=== PATIENT | male | born 1995 | race Caucasian/White ===

== ENCOUNTER 2019-09-23 10:15 | Emergency (ER) | payer OTHER ==
--- OUTSIDE RECORDS SUMMARY | 2019-09-23 10:17 | XMS REPORT | Encounter Summary ---
:1995 Author Care Team Providers Name Role Phone Dr. Olayinka Leal Primary Care Provider [phone] Reason for Visit Left ear pain/problem; sleep problems Instructions 1. Sleep disorder otolaryngology referral 2. Hearing loss of left ear audiology referral 3. Tinnitus Bromfed DM 2 mg-30 mg-10 mg/5 mL oral syrup prednisone 20 mg tablet 4. Body mass index 25-29 - overweight learning about healthy weight Discussion Note: None recorded. Plan of Care Patient Instructions RTC prn Reminders Provider Appointments [employer]/EST CPX on or around Olayinka Mishra 10/04/2019 MD [facility] None recorded. Referral Audiology 05/06/2019 Referral Otolaryngology 05/06/2019 Referral Procedures None recorded. Surgeries None recorded. Imaging None recorded. Medications Name Start Date Bromfed DM 2 mg-30 mg-10 mg/5 mL oral syrup Take 10 mL every 6 hours by oral route as needed. prn cough and congestion prednisone 20 mg tablet Take 2 tablets every day by oral route in the morning. Medications Administered None recorded. Vitals Height Weight BMI Blood Pressure 5 ft 11 in 192 lbs 26.8 kg/m2 118/78 mm[Hg] Results Lab Results None recorded. Allergies Code Code System Name Reaction Severity Status Onset NKDA Problems Name Status Onset Date Source Hearing Loss of Left Ear Active 05/06/2019 Procedures Date Name Performed by 07/01/2013 Reconstructive Surgery Information not available Extraction of [place] Tooth Information not available Urology Surgery Procedure Information not available Vaccine List Vaccine Type influenza, injectable, quadrivalent 05/26/2018 04/01/2019 Tdap 07/01/2016 Social History Tobacco Smoking Status Never Smoker Past Encounters 05/06/2019 Sleep Disorder; Hearing Loss of Left Ear; Tinnitus; Body Mass Index 25-29 - Overweight Olayinka Leal MD: [id number], [address], [place] [address], Ph. [phone] History of Present Illness Note: Get est.<div>
</div><div>Ear - Pt did work exam. Told that had 30% hearing loss in Lt. 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 If hears too many conversations at once, will be hard to hear.
Pt will also gets a humming / ringing in michael ears. x 2 yrs. No Tx.</div><div>
Sleep - Pt snores so much that can not stand it. will need to wake Pt up. Pt has had nose Sx. S/S worst since Sx.</div><div>x 2013</div>Review of Systems: ROS as noted in the HPI Review of Systems Comprehensive General Adult ROS Reported By: Patient Constitutional: Constitutional: no fever Eyes: Eyes: no vision change, no irritation ENMT: Ears: no difficulty hearing, no ear pain. Nose: no nose problems, no sinus problems. Mouth/Throat: no sore throat, no oral abnormalities Cardiovascular: Cardiovascular: no chest pain, no palpitations Respiratory: Respiratory: no cough, no wheezing, no shortness of breath Gastrointestinal: Gastrointestinal: no abdominal pain, no nausea, no vomiting, no constipation, normal appetite, no diarrhea, no GERD Genitourinary: Genitourinary: no difficulty urinating, no hematuria, no increased frequency Musculoskeletal: Musculoskeletal: no muscle aches Integumentary: Skin: no rashes Neurologic: Neurologic: no headaches Endocrine: Endocrine: no fatigue Hematologic/Lymphatic: Hematologic/Lymphatic no swollen glands Allergic/Immunologic: Allergy/Immunologic: no runny nose, no sinus pressure, no itching, no frequent sneezing Physical Exam General Adult Exam (male) Reported By: Patient Constitutional: General Appearance: healthy-appearing, well-nourished, well-developed. Level of Distress: NAD. Ambulation: ambulating normally Psychiatric: Insight: good judgement. Mental Status: normal mood, normal affect Head: Head: normocephalic, atraumatic Eyes: Lids and Conjunctivae: non-injected, no discharge, no pallor. Pupils: PERRLA. EOM: EOMI ENMT: Ears: no lesions on external ear, EACs clear, TMs clear. Hearing: no hearing loss. Nose: no lesions on external nose, nares patent, nasal passages clear, no sinus tenderness, no nasal discharge. Oropharynx: moist mucous membranes, no erythema, no exudates, tonsils not enlarged; small airway Neck: Neck: supple, trachea midline, no masses, FROM. Lymph Nodes: no cervical LAD, no supraclavicular LAD Lungs: Respiratory effort: no dyspnea. Auscultation: breath sounds normal, good air movement, CTA except as noted, no wheezing, no rales/crackles, no rhonchi Cardiovascular: Heart Auscultation: RRR, normal S1, normal S2, no murmurs, no rubs, no gallops Neurologic: Gait and Station: normal gait, normal station
--- OUTSIDE RECORDS SUMMARY | 2019-09-23 10:17 | XMS REPORT ---
:1995 [facility] Address [address] [place] [id number] Care Team Providers Name Role Phone Unavailable Unavailable Unavailable Payers Payer Name Policy Type Policy Number Effective Date Expiration Date Problems This patient has no known problems. Allergies, Adverse Reactions, Alerts Allergy Allergy Status Severity Reaction(s) Onset Inactive Treating Comments Name Type Date Date Clinician No Known DA Active U 2013-09 Allergies -10 00:00:0 0 Medications This patient has no known medications.
[2019-09-23] MEDS ORDERED: ACETAMINOPHEN 325 MG TABLET ONE (10:46)
--- NOTE | 2019-09-23 10:56 | RAD REPORT ---
EXAM DESCRIPTION: CT - Head Brain Wo Cont - 09/23/2019 10:43 am CLINICAL HISTORY: Head injury status post fall. Concussion COMPARISON: None. TECHNIQUE: Computed axial tomography of the head was obtained. IV contrast was not requested. All CT scans are performed using dose optimization technique as appropriate and may include automated exposure control or mA/KV adjustment according to patient size. FINDINGS: An intracranial bleed is not seen . The ventricles are normal in caliber. No extra-axial fluid collection is noted. Fluid is present within the maxillary sinuses IMPRESSION: No acute intracranial abnormality is seen. If patient's symptoms persist MRI of the bra in would be recommended. Fluid within maxillary sinus may indicate acute sinusitis
--- NOTE | 2019-09-23 11:04 | ER ---
Nurse's Notes [facility] Name: Apurva Desir Age: 24 yrs Sex: Male : 1995 Arrival Date: 09/23/2019 Time: 10:19 Bed 20 Private MD: Diagnosis: Concussion without loss of consciousness Presentation: 09/22 10:27 Chief complaint: Patient states: slipped and fell in shower last night, denies LOC, iw reports nausea and feeling "off". Coronavirus screen: Patient denies fever greater than 100.4F, cough, shortness of breath, or difficulty breathing. Proceed with normal triage process. Ebola Screen: Patient negative for fever greater than or equal to 101.5 degrees Fahrenheit, and additional compatible Ebola Virus Disease symptoms Patient denies exposure to infectious person. Patient denies travel to an Ebola-affected area in the 21 days before illness onset. No symptoms or risks identified at this time. Initial Sepsis Screen: Does the patient meet any 2 criteria? No. Patient's initial sepsis screen is negative. Does the patient have a suspected source of infection? No. Patient's initial sepsis screen is negative. Risk Assessment: Do you want to hurt yourself or someone else? Patient reports no desire to harm self or others. 10:27 Method Of Arrival: Ambulatory iw 10:27 Acuity: MIHIR 4 iw Historical: - Allergies: 10:28 No Known Allergies; iw - Family history:: not pertinent. - Hospitalizations: : No recent hospitalization is reported. Screenin:34 Abuse screen: Denies threats or abuse. Nutritional screening: No deficits noted. em Tuberculosis screening: No symptoms or risk factors identified. Fall Risk None identified. Assessment: 10:51 General: Appears in no apparent distress. comfortable, Behavior is calm, cooperative, em Reports falling in shower and feeling "off". Pain: Complains of pain in right temporal area Pain currently is 6 out of 10 on a pain scale. Neuro: Level of Consciousness is awake, alert, obeys commands, Oriented to person, place, time, situation, Appropriate for age Mechanical Sound Technician are equal bilaterally Moves all extremities. Speech is normal, Facial symmetry appears normal, Denies LOC. Cardiovascular: Capillary refill < 3 seconds Patient's skin is warm and dry. Respiratory: Airway is patent Respiratory effort is even, unlabored, Respiratory pattern is regular, symmetrical. GI: Abdomen is flat, Reports nausea, Patient currently denies vomiting. Derm: Skin is intact, is healthy with good turgor, Skin is pink, warm \\T\\ dry. Musculoskeletal: Capillary refill < 3 seconds, Range of motion: intact in all extremities. Vital Signs: 10:27 BP 128 / 73; Pulse 83; Resp 16; Temp 98.2; Pulse Ox 100% on R/A; iw Hostetter Coma Score: 10:34 Eye Response: spontaneous(4). Verbal Response: oriented(5). Motor Response: obeys rn commands(6). Total: 15. 11:02 Eye Response: spontaneous(4). Verbal Response: oriented(5). Motor Response: obeys rn commands(6). Total: 15. ED Course: 10:19 Patient arrived in ED. fj1 10:22 Tano Edwards MD is Attending Physician. rn 10:26 Rangel Argueta RN is Primary Nurse. em 10:28 Triage completed. iw 10:28 Arm band placed on. iw 10:34 Patient has correct armband on for positive identification. Bed in low position. Call em light in reach. Pulse ox on. NIBP on. 10:50 CT Head Brain wo Cont In Process Unspecified. EDMS 11:23 No provider procedures requiring assistance completed. Patient did not have IV access em during this emergency room visit. Administered Medications: 10:53 Drug: Tylenol 650 mg Route: PO; em 11:24 Follow up: Response: No adverse reaction em Outcome: 11:03 Discharge ordered by . rn 11:23 Discharged to home ambulatory. em 11:23 Condition: good 11:23 Discharge instructions given to patient, Instructed on discharge instructions, follow up and referral plans. Demonstrated understanding of instructions, follow-up care. 11:24 Patient left the ED. em Signatures: Dispatcher [employer] EDMS Rangel Argueta, Milli Castillo RN, RN RN iw Nieto, Roman, MD MD rn James, Frank fj1
--- NOTE | 2019-09-23 11:05 | EDPHYS ---
Physician Documentation [facility] Name: Apurva Desir Age: 24 yrs Sex: Male : 1995 Arrival Date: 09/23/2019 Time: 10:19 Bed 20 Private MD: ED Physician Tano Edwards HPI: 09/22 10:34 This 24 yrs old Male presents to ER via Ambulatory with complaints of rn EXAMINATION FOR POSSIBLE CONCUSSION. 10:34 The patient or guardian reports injury. The complaints affect the right temporal area. rn Onset: The symptoms/episode began/occurred last night. Associated signs and symptoms: Loss of consciousness: This patient did not experience any loss of consciousness. Pertinent positives: dazed, nausea, Pertinent negatives: headache, incontinence, neck pain, seizure, shortness of breath, vomiting, weakness in extremities, generalized weakness. Severity of symptoms: At their worst the symptoms were mild, in the emergency department the symptoms are unchanged. The patient has not experienced similar symptoms in the past. Reports fall while showering last night, hit right temporal area, no LOC, no vomiting, no focal neuro complaint, felt dazed and nausea, and just "feels off", seen by EMT and told to come to be evaluated for concussion.. Historical: - Allergies: 10:28 No Known Allergies; iw - Family history:: not pertinent. - Hospitalizations: : No recent hospitalization is reported. ROS: 10:34 Constitutional: Negative for fever, chills, and weight loss, Eyes: Negative for injury, rn pain, redness, and discharge, Neck: Negative for injury, pain, and swelling, Cardiovascular: Negative for chest pain, palpitations, and edema, Respiratory: Negative for shortness of breath, cough, wheezing, and pleuritic chest pain, Abdomen/GI: Negative for abdominal pain, vomiting, diarrhea, and constipation, Back: Negative for injury and pain, MS/Extremity: Negative for injury and deformity, Skin: Negative for injury, rash, and discoloration, Neuro: Negative for headache, weakness, numbness, tingling, and seizure. Exam: 10:34 Constitutional: This is a well developed, well nourished patient who is awake, alert, rn and in no acute distress. Ambulatory to room without difficulty or assistance. Head/Face: Normocephalic Eyes: Pupils equal round and reactive to light, extra-ocular motions intact. Lids and lashes normal. Conjunctiva and sclera are non-icteric and not injected. Cornea within normal limits. Periorbital areas with no swelling, redness, or edema. ENT: No oral trauma. Neck: Trachea midline, no thyromegaly or masses palpated, and no cervical lymphadenopathy. Supple, full range of motion without nuchal rigidity, or vertebral point tenderness. No Meningismus. Cardiovascular: Regular rate and rhythm. No pulse deficits. Skin: Warm, dry with normal turgor. Normal color with no rashes, no lesions, and no evidence of cellulitis. MS/ Extremity: Pulses equal, no cyanosis. Neurovascular intact. Full, normal range of motion. Equal circumference. Neuro: Awake and alert, GCS 15, oriented to person, place, time, and situation. Cranial nerves II-XII grossly intact. Motor strength 5/5 in all extremities. Sensory grossly intact. Cerebellar exam normal. Normal gait. Vital Signs: 10:27 BP 128 / 73; Pulse 83; Resp 16; Temp 98.2; Pulse Ox 100% on R/A; iw Ar Coma Score: 10:34 Eye Response: spontaneous(4). Verbal Response: oriented(5). Motor Response: obeys rn commands(6). Total: 15. 11:02 Eye Response: spontaneous(4). Verbal Response: oriented(5). Motor Response: obeys rn commands(6). Total: 15. MDM: 10:22 Patient medically screened. rn 11:02 Differential diagnosis: Contusion of Concussion. Data reviewed: vital signs, nurses rn notes, radiologic studies, CT scan, and as a result, I will discharge patient. Counseling: I had a detailed discussion with the patient and/or guardian regarding: the historical points, exam findings, and any diagnostic results supporting the discharge/admit diagnosis, radiology results, the need for outpatient follow up, to return to the emergency department if symptoms worsen or persist or if there are any questions or concerns that arise at home. Response to treatment: There is no appreciated change of the patient's symptoms at this time, and as a result, I will discharge patient. Special discussion: Based on the patient's history, exam and DX evaluation, there is no indication for emergent intervention or inpatient [place]. It is understood by the patient/guardian that if the SXs persist or worsen they need to return immediately for re-evaluation. I discussed with the patient/guardian in detail that at this point there is no indication for admission to the hospital. It is understood, however, that if the symptoms persist or worsen the patient needs to return immediately for re-evaluation. ED course: CT head negative, most consistent with post-concussive syndrome, will dc home with conservative treatment. . 09/22 10:34 Order name: CT Head Brain wo Cont; Complete Time: 11:01 rn Administered Medications: 10:53 Drug: Tylenol 650 mg Route: PO; em 11:24 Follow up: Response: No adverse reaction em Disposition: 09/23/19 11:03 Discharged to Home. Impression: Concussion without loss of consciousness. - Condition is Stable. - Discharge Instructions: Concussion, Adult, Post-Concussion Syndrome. - Work release form, Medication Reconciliation Form, Thank You Letter, Antibiotic Education, Prescription Opioid Use form. - Follow up: Private Physician; When: As needed; Reason: Recheck today's complaints, Re-evaluation by your physician. - Problem is new. - Symptoms are unchanged. Signatures: Dispatcher [employer] EDRangel Denise RN RN Milli Mcdonald RN RN iw Tano Edwards MD MD pattern data operator: (The following items were deleted from the chart) 11:24 11:03 09/23/2019 11:03 Discharged to Home. Impression: Concussion without loss of em consciousness. Condition is Stable. Forms are Medication Reconciliation Form, Thank You Letter, Antibiotic Education, Prescription Opioid Use. Follow up: Private Physician; When: As needed; Reason: Recheck today's complaints, Re-evaluation by your physician. Problem is new. Symptoms are unchanged. rn
[2019-09-23 11:31] VITALS: BP 128/73; TEMP 98.2; O2SAT 100
== END 2019-09-23 11:24 | disposition home or self-care (01) ==
LOC: ER 10:15
DX: S06.0X0A Concussion without loss of consciousness, initial encounter (principal); W18.2XXA Fall in (into) shower or empty bathtub, initial encounter; Y93.E1 Activity, personal bathing and showering; Y92.9 Unspecified place or not applicable
CPT/HCPCS: 70450; 99283